=== PATIENT | male | born 2005 | race African-American/Black ===

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

== ENCOUNTER 2023-03-31 13:25 | Emergency (ER) | payer OTHER | END 2023-03-31 14:02 | disposition home or self-care (01) | LOC: ERS 13:25 | DX: M79.632 Pain in left forearm (principal); X50.0XXA Overexertion from strenuous movement or load, initial encounter; Y93.89 Activity, other specified; Y92.79 Other farm location as the place of occurrence of the external cause | CPT/HCPCS: 99283 ==